=== PATIENT | female | born 1985 | race Two or more races ===

== ENCOUNTER 2024-10-10 17:18 | Emergency (ER) | payer OTHER ==
[~2024-10-10] VITALS: Ht 154.9 cm; Wt 61.2 kg
[2024-10-10 17:40] VITALS: BP 148/90; O2SAT 99
[2024-10-10] MEDS ORDERED: PROTONIX40 M1 (17:40)
[2024-10-10] MEDS ORDERED: ZESTORETIC 10-1 EACH (17:40)
[2024-10-10] MEDS ORDERED: KETOROLAC TROMETHAMINE 60 MG VIAL IM ONE ×2 (21:30→21:34)
[2024-10-10 22:05] LABS: HEMATOCRIT 34.1 % (36.0-45.00); HEMOGLOBIN 11.1 g/dL (12.0-15.00); MEAN CELL VOLUME 78.7 fL (80.00-100.00); MEAN CORPUSCULAR HEMOGLOBIN 25.7 pg (27.00-32.0); MEAN CORPUSCULAR HGB CONC 32.6 g/dl (32.0-36.0); PLATELET COUNT 470 K/uL (150-450); RED BLOOD COUNT 4.33 M/uL (4.00-6.00); RED CELL DISTRIBUTION WIDTH 16.9 % (11.5-14.5)
[2024-10-10] MEDS ORDERED: BENZONATATE200 M1 PO (23:22)
== END 2024-10-11 00:48 | disposition home or self-care (01) ==
LOC: ER 17:20
PROVIDERS: Preventive Medicine Public Health & General Preventive Medicine
DX: B34.9 Viral infection, unspecified (principal); J31.0 Chronic rhinitis; G43.809 Other migraine, not intractable, without status migrainosus; I10 Essential (primary) hypertension; Z20.822 Contact with and (suspected) exposure to COVID-19